=== PATIENT | female | born 1990 | race Caucasian/White ===

== ENCOUNTER → 2018-02-14 | Outpatient (CLI) | payer MEDICARE ==
[~2018-02-14] MED LIST: IBUP800 PO; LAMO25 PO; LEVE500 PO; PNV 29-1 TABLE1 EACH; PROM25; Percocet 5-3251 EACH PO
[2018-02-16 15:08] LABS: HPV 16 Negative (Negative); HPV 18 Negative (Negative); HPV OTHER HR TYPES Negative (Negative)
== END | disposition home or self-care (01) ==
LOC: LAB 09:04 → LAB SHORT 09:04
PROVIDERS: Nurse Practitioner Women's Health
DX: Z12.4 Encounter for screening for malignant neoplasm of cervix (principal); R87.810 Cervical high risk human papillomavirus (HPV) DNA test positive; Z91.89 Other specified personal risk factors, not elsewhere classified
CPT/HCPCS: 87624; G0123